=== PATIENT | male | born 2000 | race Caucasian/White ===

== ENCOUNTER → 2023-11-29 15:03 | Outpatient (CLI) | payer OTHER, MEDICAID, SELFPAY | PROVIDERS: PCP Family Medicine; Visit Provider Family Medicine | DX: E10.9 Type 1 diabetes mellitus without complications (principal); R60.0 Localized edema; S91.309A Unspecified open wound, unspecified foot, initial encounter | CPT/HCPCS: 87070; 87075; 87077; 87147; 87186; 87205 ==

== ENCOUNTER → 2023-12-04 12:11 | Outpatient (CLI) | payer OTHER, MEDICAID, SELFPAY ==
--- NOTE | 2023-12-04 12:12 | DI.RAD.S_ITS ---
PROCEDURE: XR FOOT LT MIN 3V INDICATIONS: l foot wound TECHNIQUE: 3 views of the foot were acquired. COMPARISON: None. FINDINGS: Bones: No fractures or dislocations. No suspicious bony lesions. No osseous erosions or periosteal reaction. Soft tissues: No tibiotalar joint effusion. Achilles tendon appears normal. Soft tissue swelling in the forefoot. No soft tissue gas. IMPRESSION: No acute bony abnormality. Dictated by: Mary Ham MD, PhD on 12/04/2023 at 13:11 Approved by: Mary Ham MD, PhD on 12/04/2023 at 13:12
== END ==
PROVIDERS: PCP Family Medicine; Referring Provider Family Medicine; Visit Provider Family Medicine
DX: S91.302A Unspecified open wound, left foot, initial encounter (principal); A49.8 Other bacterial infections of unspecified site; R60.0 Localized edema; E10.8 Type 1 diabetes mellitus with unspecified complications; X58.XXXA Exposure to other specified factors, initial encounter
CPT/HCPCS: 73630

== ENCOUNTER → 2023-12-04 13:01 | Outpatient (CLI) | payer OTHER, MEDICAID, SELFPAY | PROVIDERS: PCP Family Medicine; Referring Provider Family Medicine; Visit Provider Surgery | DX: E10.621 Type 1 diabetes mellitus with foot ulcer (principal); L97.522 Non-pressure chronic ulcer of other part of left foot with fat layer exposed; L84 Corns and callosities; R60.0 Localized edema; I96 Gangrene, not elsewhere classified; S91.302A Unspecified open wound, left foot, initial encounter; A49.8 Other bacterial infections of unspecified site; E10.8 Type 1 diabetes mellitus with unspecified complications; X58.XXXA Exposure to other specified factors, initial encounter | CPT/HCPCS: 11042; 73630; 99203; 99213 ==

== ENCOUNTER → 2023-12-11 14:34 | Outpatient (CLI) | payer OTHER, MEDICAID, SELFPAY | PROVIDERS: PCP Family Medicine; Referring Provider Family Medicine; Visit Provider Surgery | DX: E10.621 Type 1 diabetes mellitus with foot ulcer (principal); L97.522 Non-pressure chronic ulcer of other part of left foot with fat layer exposed; L84 Corns and callosities | CPT/HCPCS: 11042 ==

== ENCOUNTER → 2023-12-26 14:28 | Outpatient (CLI) | payer OTHER, MEDICAID, SELFPAY | LOC: WC 14:29 | PROVIDERS: PCP Family Medicine; Referring Provider Family Medicine; Visit Provider Surgery | DX: L97.522 Non-pressure chronic ulcer of other part of left foot with fat layer exposed (principal); E10.621 Type 1 diabetes mellitus with foot ulcer; L53.9 Erythematous condition, unspecified; L84 Corns and callosities; M79.675 Pain in left toe(s); Z79.2 Long term (current) use of antibiotics | CPT/HCPCS: 11042; 87070; 87077; 87186; 87205; 99213 ==

== ENCOUNTER → 2023-12-28 15:40 | Outpatient (CLI) | payer OTHER, MEDICAID, SELFPAY ==
--- NOTE | 2023-12-28 15:41 | DI.MRI.S_ITS ---
PROCEDURE: MR FOOT LT WO/W CON INDICATIONS: Evaluation with treatment TECHNIQUE: Multiphasic, multisequence MRI of the forefoot was performed, before and after intravenous contrast administration. COMPARISON: [facility], CR, XR FOOT LT MIN 3V, 12/04/2023, 12:17. FINDINGS: Image quality: Excellent. Bones and joints: Osseous edema is seen within the 5th distal phalanx. There is subtle loss of cortical definition at the tuft of the 5th distal phalanx without significantly decreased intrinsic T1-weighted signal. The remaining visualized osseous structures demonstrate mild signal abnormalities that could be related to disuse osteopenia. No acute trabecular bone injury or fracture. No suspicious intraosseous lesion. Soft tissues: Soft tissue edema and enhancement are seen within the 5th toe. Adjacent dressing material is noted. There is also nonenhancing subcutaneous edema throughout the dorsum of the foot. No focal fluid collection is seen at. There is mild edema within the plantar foot muscles. The visualized musculature is normal in bulk. Visualized flexor and extensor tendons are intact. Lisfranc ligament is intact. IMPRESSION: 1. Subcutaneous edema and enhancement throughout the 5th toe with edema extending into the dorsum of the foot. No fluid collection/abscess. 2. Osseous edema within the 5th distal phalanx with subtle loss of cortical definition at the tuft, mildly suspicious for osteomyelitis although there is no significant loss of intrinsic T1-weighted signal and findings could be related to reactive edema. 3. Mild edema within the plantar foot musculature, which may be related to myositis, reactive edema, or muscle strains. Approved by: Enzo Rothman M.D. on 12/28/2023 at 17:04
== END ==
PROVIDERS: PCP Family Medicine; Referring Provider Family Medicine; Visit Provider Family Medicine
DX: R60.0 Localized edema (principal); A49.8 Other bacterial infections of unspecified site
CPT/HCPCS: 73720; A9579

== ENCOUNTER → 2024-01-02 15:01 | Outpatient (CLI) | payer OTHER, MEDICAID, SELFPAY | LOC: WC 15:01 | PROVIDERS: PCP Family Medicine; Referring Provider Family Medicine; Visit Provider Surgery | DX: E10.621 Type 1 diabetes mellitus with foot ulcer (principal); L97.522 Non-pressure chronic ulcer of other part of left foot with fat layer exposed; L53.9 Erythematous condition, unspecified; R60.0 Localized edema | CPT/HCPCS: 11042 ==

== ENCOUNTER → 2024-01-09 13:58 | Outpatient (CLI) | payer OTHER, MEDICAID, SELFPAY | LOC: WC 14:00 | PROVIDERS: PCP Family Medicine; Referring Provider Family Medicine; Visit Provider Surgery | DX: E10.621 Type 1 diabetes mellitus with foot ulcer (principal); L97.522 Non-pressure chronic ulcer of other part of left foot with fat layer exposed; L84 Corns and callosities; L53.9 Erythematous condition, unspecified | CPT/HCPCS: 11042 ==

== ENCOUNTER → 2024-01-16 14:23 | Outpatient (CLI) | payer OTHER, MEDICAID, SELFPAY | LOC: WC 14:24 | PROVIDERS: PCP Family Medicine; Referring Provider Family Medicine; Visit Provider Surgery | DX: E10.621 Type 1 diabetes mellitus with foot ulcer (principal); L97.522 Non-pressure chronic ulcer of other part of left foot with fat layer exposed; R60.0 Localized edema; L53.9 Erythematous condition, unspecified | CPT/HCPCS: 11042 ==

== ENCOUNTER → 2024-01-23 15:44 | Outpatient (CLI) | payer OTHER, MEDICAID, SELFPAY | LOC: WC 15:44 | PROVIDERS: Family Provider Family Medicine; PCP Family Medicine; Referring Provider Family Medicine; Visit Provider Surgery | DX: E10.621 Type 1 diabetes mellitus with foot ulcer (principal); L97.522 Non-pressure chronic ulcer of other part of left foot with fat layer exposed; B49 Unspecified mycosis; R60.0 Localized edema | CPT/HCPCS: 97597; 99213 ==

== ENCOUNTER → 2024-01-30 15:39 | Outpatient (CLI) | payer OTHER, MEDICAID, SELFPAY | LOC: WC 15:40 | PROVIDERS: Family Provider Family Medicine; PCP Family Medicine; Referring Provider Family Medicine; Visit Provider Surgery | DX: L97.522 Non-pressure chronic ulcer of other part of left foot with fat layer exposed (principal); E10.621 Type 1 diabetes mellitus with foot ulcer; R60.0 Localized edema; L53.9 Erythematous condition, unspecified; R21 Rash and other nonspecific skin eruption | CPT/HCPCS: 11042; 11045; 99212; 99213 ==

== ENCOUNTER → 2024-02-06 14:05 | Outpatient (CLI) | payer OTHER, MEDICAID, SELFPAY | PROVIDERS: Family Provider Family Medicine; PCP Family Medicine; Referring Provider Family Medicine; Visit Provider Surgery | DX: E10.621 Type 1 diabetes mellitus with foot ulcer (principal); L97.522 Non-pressure chronic ulcer of other part of left foot with fat layer exposed; R60.0 Localized edema; R21 Rash and other nonspecific skin eruption; M21.372 Foot drop, left foot | CPT/HCPCS: 11042 ==

== ENCOUNTER → 2024-02-06 14:59 | Outpatient (CLI) | payer OTHER, MEDICAID, SELFPAY ==
--- NOTE | 2024-02-06 15:01 | DI.RAD.S_ITS ---
PROCEDURE: XR CHEST 2V INDICATIONS: Eval for HBO treatment TECHNIQUE: 2 views of the chest were acquired. COMPARISON: None. FINDINGS: Surgical changes and devices: None. Lungs and pleura: Lungs are clear. No pleural effusions or pneumothorax. Mediastinum: Mediastinal contours are normal. Heart size is normal. Bones and chest wall: No suspicious bony abnormalities. Soft tissues appear unremarkable. IMPRESSION: No acute pulmonary process. Dictated by: Ana Paula Wasserman M.D. on 02/06/2024 at 16:22 Approved by: Ana Paula Wasserman M.D. on 02/06/2024 at 16:22
== END ==
PROVIDERS: Family Provider Family Medicine; PCP Family Medicine; Referring Provider Surgery; Visit Provider Surgery
DX: Z01.810 Encounter for preprocedural cardiovascular examination (principal); E10.621 Type 1 diabetes mellitus with foot ulcer
CPT/HCPCS: 71046

== ENCOUNTER → 2024-02-08 14:15 | Outpatient (CLI) | payer OTHER, MEDICAID, SELFPAY | LOC: WC 14:15 | PROVIDERS: Family Provider Family Medicine; PCP Family Medicine; Referring Provider Family Medicine; Visit Provider Surgery | DX: E16.2 Hypoglycemia, unspecified (principal) | CPT/HCPCS: 99211 ==

== ENCOUNTER → 2024-02-11 14:45 | Outpatient (CLI) | payer OTHER, MEDICAID, SELFPAY | LOC: WC 14:45 | PROVIDERS: Family Provider Family Medicine; PCP Family Medicine; Referring Provider Family Medicine; Visit Provider Surgery | DX: L97.522 Non-pressure chronic ulcer of other part of left foot with fat layer exposed (principal); E10.621 Type 1 diabetes mellitus with foot ulcer; B35.9 Dermatophytosis, unspecified; M86.172 Other acute osteomyelitis, left ankle and foot | CPT/HCPCS: 99183; G0277 ==

== ENCOUNTER → 2024-02-12 14:19 | Outpatient (CLI) | payer OTHER, MEDICAID, SELFPAY | LOC: WC 14:19 | PROVIDERS: Family Provider Family Medicine; PCP Family Medicine; Referring Provider Family Medicine; Visit Provider Surgery | DX: L97.522 Non-pressure chronic ulcer of other part of left foot with fat layer exposed (principal); E10.621 Type 1 diabetes mellitus with foot ulcer; B35.9 Dermatophytosis, unspecified; M86.172 Other acute osteomyelitis, left ankle and foot | CPT/HCPCS: 99183; G0277 ==

== ENCOUNTER → 2024-02-13 15:25 | Outpatient (CLI) | payer OTHER, MEDICAID, SELFPAY | PROVIDERS: Family Provider Family Medicine; PCP Family Medicine; Referring Provider Family Medicine; Visit Provider Surgery | DX: E10.621 Type 1 diabetes mellitus with foot ulcer (principal); L97.522 Non-pressure chronic ulcer of other part of left foot with fat layer exposed; B35.9 Dermatophytosis, unspecified; M86.172 Other acute osteomyelitis, left ankle and foot; R60.0 Localized edema | CPT/HCPCS: 11042; 99183; G0277 ==

== ENCOUNTER → 2024-02-14 08:12 | Outpatient (CLI) | payer OTHER, MEDICAID, SELFPAY | PROVIDERS: Family Provider Family Medicine; PCP Family Medicine; Referring Provider Family Medicine; Visit Provider Surgery | DX: L97.522 Non-pressure chronic ulcer of other part of left foot with fat layer exposed (principal); E10.621 Type 1 diabetes mellitus with foot ulcer; B35.9 Dermatophytosis, unspecified; M86.172 Other acute osteomyelitis, left ankle and foot | CPT/HCPCS: 99183; G0277 ==

== ENCOUNTER → 2024-02-19 13:02 | Outpatient (CLI) | payer OTHER, MEDICAID, SELFPAY | PROVIDERS: Family Provider Family Medicine; PCP Family Medicine; Referring Provider Family Medicine; Visit Provider Surgery | DX: L97.522 Non-pressure chronic ulcer of other part of left foot with fat layer exposed (principal); E10.621 Type 1 diabetes mellitus with foot ulcer; B35.9 Dermatophytosis, unspecified; M86.172 Other acute osteomyelitis, left ankle and foot | CPT/HCPCS: 99183; G0277 ==

== ENCOUNTER → 2024-02-20 10:27 | Outpatient (CLI) | payer OTHER, MEDICAID, SELFPAY | PROVIDERS: Family Provider Family Medicine; PCP Family Medicine; Referring Provider Family Medicine; Visit Provider Surgery | DX: E10.621 Type 1 diabetes mellitus with foot ulcer (principal); L97.522 Non-pressure chronic ulcer of other part of left foot with fat layer exposed; M86.172 Other acute osteomyelitis, left ankle and foot; R60.0 Localized edema; B35.9 Dermatophytosis, unspecified | CPT/HCPCS: 11042; 99183; G0277 ==

== ENCOUNTER → 2024-02-21 10:59 | Outpatient (CLI) | payer OTHER, MEDICAID, SELFPAY | LOC: WC 11:00 | PROVIDERS: Family Provider Family Medicine; PCP Family Medicine; Referring Provider Family Medicine; Visit Provider Surgery | DX: L97.522 Non-pressure chronic ulcer of other part of left foot with fat layer exposed (principal); E10.621 Type 1 diabetes mellitus with foot ulcer; B35.9 Dermatophytosis, unspecified; M86.172 Other acute osteomyelitis, left ankle and foot | CPT/HCPCS: 99183; G0277 ==

== ENCOUNTER → 2024-02-22 10:55 | Outpatient (CLI) | payer OTHER, MEDICAID, SELFPAY | LOC: WC 10:56 | PROVIDERS: Family Provider Family Medicine; PCP Family Medicine; Referring Provider Family Medicine; Visit Provider Physician Assistant | DX: L97.522 Non-pressure chronic ulcer of other part of left foot with fat layer exposed (principal); E10.621 Type 1 diabetes mellitus with foot ulcer; B35.9 Dermatophytosis, unspecified; M86.172 Other acute osteomyelitis, left ankle and foot | CPT/HCPCS: 99183; G0277 ==

== ENCOUNTER → 2024-02-25 11:09 | Outpatient (CLI) | payer OTHER, MEDICAID, SELFPAY | LOC: WC 11:10 | PROVIDERS: Family Provider Family Medicine; PCP Family Medicine; Referring Provider Family Medicine; Visit Provider Surgery | DX: L97.522 Non-pressure chronic ulcer of other part of left foot with fat layer exposed (principal); E10.621 Type 1 diabetes mellitus with foot ulcer; B35.9 Dermatophytosis, unspecified; M86.172 Other acute osteomyelitis, left ankle and foot | CPT/HCPCS: 99183; G0277 ==

== ENCOUNTER → 2024-02-26 10:52 | Outpatient (CLI) | payer OTHER, MEDICAID, SELFPAY | LOC: WC 10:53 | PROVIDERS: Family Provider Family Medicine; PCP Family Medicine; Referring Provider Family Medicine; Visit Provider Surgery | DX: L97.522 Non-pressure chronic ulcer of other part of left foot with fat layer exposed (principal); E10.621 Type 1 diabetes mellitus with foot ulcer; B35.9 Dermatophytosis, unspecified; M86.172 Other acute osteomyelitis, left ankle and foot | CPT/HCPCS: 99183; G0277 ==

== ENCOUNTER → 2024-02-27 10:57 | Outpatient (CLI) | payer OTHER, MEDICAID, SELFPAY | LOC: WC 10:57 | PROVIDERS: Family Provider Family Medicine; PCP Family Medicine; Referring Provider Family Medicine; Visit Provider Surgery | DX: E10.621 Type 1 diabetes mellitus with foot ulcer (principal); L97.522 Non-pressure chronic ulcer of other part of left foot with fat layer exposed; M86.172 Other acute osteomyelitis, left ankle and foot; R60.0 Localized edema; B35.9 Dermatophytosis, unspecified | CPT/HCPCS: 11042; 99183; 99213; G0277 ==

== ENCOUNTER → 2024-02-28 10:54 | Outpatient (CLI) | payer OTHER, MEDICAID, SELFPAY | LOC: WC 10:57 | PROVIDERS: Family Provider Family Medicine; PCP Family Medicine; Referring Provider Family Medicine; Visit Provider Surgery | DX: L97.522 Non-pressure chronic ulcer of other part of left foot with fat layer exposed (principal); E10.621 Type 1 diabetes mellitus with foot ulcer; B35.9 Dermatophytosis, unspecified; M86.172 Other acute osteomyelitis, left ankle and foot | CPT/HCPCS: 99183; G0277 ==

== ENCOUNTER → 2024-02-29 11:06 | Outpatient (CLI) | payer OTHER, MEDICAID, SELFPAY | LOC: WC 11:06 | PROVIDERS: Family Provider Family Medicine; PCP Family Medicine; Referring Provider Family Medicine; Visit Provider Surgery | DX: L97.522 Non-pressure chronic ulcer of other part of left foot with fat layer exposed (principal); E10.621 Type 1 diabetes mellitus with foot ulcer; B35.9 Dermatophytosis, unspecified; M86.172 Other acute osteomyelitis, left ankle and foot | CPT/HCPCS: 99183; G0277 ==

== ENCOUNTER → 2024-03-03 11:28 | Outpatient (CLI) | payer OTHER, MEDICAID, SELFPAY | LOC: WC 11:30 | PROVIDERS: Family Provider Family Medicine; PCP Family Medicine; Referring Provider Family Medicine; Visit Provider Surgery | DX: L97.522 Non-pressure chronic ulcer of other part of left foot with fat layer exposed (principal); E10.621 Type 1 diabetes mellitus with foot ulcer; B35.9 Dermatophytosis, unspecified; M86.172 Other acute osteomyelitis, left ankle and foot | CPT/HCPCS: 99183; G0277 ==

== ENCOUNTER → 2024-03-04 11:56 | Outpatient (CLI) | payer OTHER, MEDICAID, SELFPAY | LOC: WC 11:57 | PROVIDERS: Family Provider Family Medicine; PCP Family Medicine; Referring Provider Family Medicine; Visit Provider Surgery | DX: E10.621 Type 1 diabetes mellitus with foot ulcer (principal); L97.522 Non-pressure chronic ulcer of other part of left foot with fat layer exposed; L92.9 Granulomatous disorder of the skin and subcutaneous tissue, unspecified; R60.0 Localized edema; M21.372 Foot drop, left foot | CPT/HCPCS: 17250; 99183; 99213; G0277 ==

== ENCOUNTER → 2024-03-05 11:14 | Outpatient (CLI) | payer OTHER, MEDICAID, SELFPAY | PROVIDERS: Family Provider Family Medicine; PCP Family Medicine; Referring Provider Family Medicine; Visit Provider Surgery | DX: L97.522 Non-pressure chronic ulcer of other part of left foot with fat layer exposed (principal); E10.621 Type 1 diabetes mellitus with foot ulcer; B35.9 Dermatophytosis, unspecified; M86.172 Other acute osteomyelitis, left ankle and foot | CPT/HCPCS: 99183; G0277 ==

== ENCOUNTER → 2024-03-06 10:53 | Outpatient (CLI) | payer OTHER, MEDICAID, SELFPAY | PROVIDERS: Family Provider Family Medicine; PCP Family Medicine; Referring Provider Family Medicine; Visit Provider Physician Assistant | DX: L97.522 Non-pressure chronic ulcer of other part of left foot with fat layer exposed (principal); E10.621 Type 1 diabetes mellitus with foot ulcer; B35.9 Dermatophytosis, unspecified; M86.172 Other acute osteomyelitis, left ankle and foot | CPT/HCPCS: 99183; G0277 ==

== ENCOUNTER → 2024-03-07 11:04 | Outpatient (CLI) | payer OTHER, MEDICAID, SELFPAY | PROVIDERS: Family Provider Family Medicine; PCP Family Medicine; Referring Provider Family Medicine; Visit Provider Physician Assistant | DX: L97.522 Non-pressure chronic ulcer of other part of left foot with fat layer exposed (principal); E10.621 Type 1 diabetes mellitus with foot ulcer; B35.9 Dermatophytosis, unspecified; M86.172 Other acute osteomyelitis, left ankle and foot | CPT/HCPCS: 99183; G0277 ==

== ENCOUNTER → 2024-03-11 11:44 | Outpatient (CLI) | payer OTHER, MEDICAID, SELFPAY | LOC: WC 11:45 | PROVIDERS: Family Provider Family Medicine; PCP Family Medicine; Referring Provider Family Medicine; Visit Provider Surgery | DX: L97.522 Non-pressure chronic ulcer of other part of left foot with fat layer exposed (principal); E10.621 Type 1 diabetes mellitus with foot ulcer; B35.9 Dermatophytosis, unspecified; M86.172 Other acute osteomyelitis, left ankle and foot | CPT/HCPCS: 99183; G0277 ==

== ENCOUNTER → 2024-03-12 10:00 | Outpatient (CLI) | payer OTHER, MEDICAID, SELFPAY | PROVIDERS: Family Provider Family Medicine; PCP Family Medicine; Referring Provider Family Medicine; Visit Provider Surgery | DX: E10.628 Type 1 diabetes mellitus with other skin complications (principal); R60.0 Localized edema; R26.9 Unspecified abnormalities of gait and mobility | CPT/HCPCS: 99213 ==

== ENCOUNTER → 2024-03-18 14:46 | Outpatient (CLI) | payer OTHER, MEDICAID, SELFPAY | PROVIDERS: Family Provider Family Medicine; PCP Family Medicine; Referring Provider Family Medicine; Visit Provider Surgery | DX: Z09 Encounter for follow-up examination after completed treatment for conditions other than malignant neoplasm (principal); Z86.31 Personal history of diabetic foot ulcer | CPT/HCPCS: 99211; 99213 ==

== ENCOUNTER → 2024-07-02 10:53 | Outpatient (CLI) | payer OTHER, MEDICAID, SELFPAY ==
[2024-07-02 11:56] LABS: Creatinine Urine Random 241.33 mg/dL
[2024-07-02 12:00] LABS: Microalbumin Urine Random 0.7 mg/dL (0-1.6)
== END ==
PROVIDERS: Family Provider Family Medicine; PCP Family Medicine; Visit Provider Family Medicine
DX: E10.9 Type 1 diabetes mellitus without complications (principal)
CPT/HCPCS: 82043; 82570